=== PATIENT | male | born 1950 | race Asian ===

== ENCOUNTER → 2022-01-23 | Outpatient (CLI) | payer OTHER ==
[~2022-01-23] MED LIST: AMBIEN 5MG TABLE5 MG PO; ASPIRIN E.C. 8181 MG PO; COZAAR 50MG50 MG/TAB PO; GARLIC100 MG PO; HUMALOG100 U/ML SQ; LEVEMIR100 U/ML SQ; TOPROL XL 25MG25 MG PO; VITAMIN D31000 I1 PO
== END ==
LOC: COL.RAD 09:10
DX: M47.812 Spondylosis without myelopathy or radiculopathy, cervical region (principal); M48.02 Spinal stenosis, cervical region; Z01.812 Encounter for preprocedural laboratory examination; R13.10 Dysphagia, unspecified
CPT/HCPCS: A9575